=== PATIENT | female | born 1965 | race Caucasian/White ===

== ENCOUNTER → 2023-09-19 | Outpatient (CLI) | payer BC, SELFPAY | END | disposition home or self-care (01) | LOC: SL 19:39 | PROVIDERS: PCP Internal Medicine; Referring Provider Nurse Practitioner Acute Care; Visit Provider Nurse Practitioner Acute Care | DX: G47.10 Hypersomnia, unspecified (principal) | CPT/HCPCS: 95810 ==

== ENCOUNTER → 2023-09-22 | Outpatient (CLI) | payer BC, SELFPAY ==
[2023-09-22 11:15] VITALS: PULSE 104; PULSE 105; PULSE 106; PULSE 107; PULSE 72; PULSE 73; PULSE 90; O2SAT 91; O2SAT 92; O2SAT 93; O2SAT 94; O2SAT 96
--- NOTE | 2023-09-23 10:02 | PCM.PSN.6M ---
PSN 6 Minute Walk Test 6 Minute Walk Test 6 Minute Walk Test: 6 Minute Walk Test PSN:6-Minute Walk Test Start: 09/22/23 11:17 Freq: Status: Active Protocol: [id number] Document 09/22/23 11:15 EW (Rec: 09/22/23 11:19 EW Desktop) 6 Minute Walk Test Date Performed 09/22/23 Time Performed 11:15 Height 4 ft 11 in Weight: 190 lb Weight in Pounds 190.0 lbs Assistive device used: None Pre-test Oxygen Delivery Method Room Air Pulse Ox 92 Pulse Rate (60-100) 90 Dyspnea Sunny Scale (0-10) 2 Exertion Sunny Scale (6-20) 8 1st minute Oxygen Delivery Method Room Air Pulse Ox 92 Pulse Rate (60-100) 73 2nd minute Oxygen Delivery Method Room Air Pulse Ox 91 Pulse Rate (60-100) 72 3rd minute Oxygen Delivery Method Room Air Pulse Ox 93 Pulse Rate (60-100) 104 H 4th minute Oxygen Delivery Method Room Air Pulse Ox 91 Pulse Rate (60-100) 105 H 5th minute Oxygen Delivery Method Room Air Pulse Ox 91 Pulse Rate (60-100) 107 H 6th minute Oxygen Delivery Method Room Air Pulse Ox 94 Pulse Rate (60-100) 106 H Post-test Oxygen Delivery Method Room Air Pulse Ox 96 Pulse Rate (60-100) 105 H Dyspnea Sunny Scale (0-10) 3 Exertion Sunny Scale (6-20) 13 Full Laps Walked 16 Partial Lap, Number of Tiles Walked 0 Total Distance Walked (ft) 944 Interpretation Interpretation: The patient ambulated 944 feet over the course of 6 minutes beginning on room air without assistive devices. Pretesting oxygen saturation was noted to be 92% on room air. With ambulation, the molina oxygen saturation was 91%. There was no significant exertional oxygen desaturation. Recommendations Recommendations: There is no indication for the use of supplemental oxygen at this time.
== END | disposition home or self-care (01) ==
LOC: PSN 10:56
PROVIDERS: PCP Internal Medicine; Referring Provider Nurse Practitioner Acute Care; Visit Provider Nurse Practitioner Acute Care
DX: R06.02 Shortness of breath (principal)
CPT/HCPCS: 94618

== ENCOUNTER 2023-09-29 09:12 | Outpatient (CLI) | payer BC, SELFPAY ==
--- NOTE | 2023-09-29 09:16 | CT_ITS ---
STUDY: LOW DOSE CT LUNG CANCER SCREENING REASON FOR EXAM: Female, 58 years old. smoker RADIATION DOSAGE (If Supplied By Facility): CTDIvol = ( 3.02 ) mGy, DLP = ( 90.63 ) mGycm TECHNIQUE: No contrast was administered. Low dose technique was utilized (average mAS-38 and kVp 120). 1.25 mm axial source images with a slice interval of 1.25-mm were reconstructed in lung windows. 2.5 mm axial source images with a slice interval of 2.5-mm were reconstructed in lung windows. 5.0 mm axial source images with a slice interval of 5.0-mm were reconstructed in soft tissue windows. COMPARISON: None. Emphysema: Mild emphysema. No noncalcified nodule or mass. Endobronchial lesion: None Aorta: Some calcified plaque in the aortic arch but no thoracic aortic aneurysm. CORONARY ARTERIES: Coronary artery calcification is seen. Heart: No cardiomegaly. Pulmonary artery: Normal Mediastinal nodes: Normal Other chest and abdominal findings: None CT/Low Dose CT Lung Screening IMPRESSION: Lung-RADS category 1 - Continue annual screening with LDCT in 12 months. IMPORTANT NOTES FOR USE: ACR Lung-RADS Version 1.1 Assessment Categories Release Date: 2018 Category: Coded 0-4 bases on nodule(s) with highest degree of suspicion. Negative screen is defined as categories 1 and 2; a positive screen is defined as categories 3 and 4. Category 3 and 4A nodules that are unchanged on interval CT should be coded as category 2, and individuals returned to screening in 12 months. Category 4X: Category 3 or 4 nodules with additional imaging findings that increase the suspicion of lung cancer, such as spiculation, GGN that doubles in size in 1 year, enlarged lymph notes, etc. Category Modifiers: S (significant finding unrelated to lung cancer) Electronically Signed: Brian Cline MD at 23:43 EDT ,
== END 2023-09-29 23:59 | disposition home or self-care (01) ==
LOC: CT 09:13
PROVIDERS: PCP Internal Medicine; Referring Provider Nurse Practitioner Acute Care; Visit Provider Nurse Practitioner Acute Care
DX: R06.02 Shortness of breath (principal); J43.9 Emphysema, unspecified; I25.10 Atherosclerotic heart disease of native coronary artery without angina pectoris; F17.210 Nicotine dependence, cigarettes, uncomplicated
CPT/HCPCS: 71271; 94060; 94726; 94729

== ENCOUNTER → 2024-10-01 | Outpatient (CLI) | payer BC, SELFPAY ==
--- NOTE | 2024-10-01 07:41 | CT_ITS ---
PROCEDURE: LOW DOSE CT LUNG SCREENING 10/01/2024 REASON FOR EXAM: SMOKER TECHNIQUE: Low Dose CT Lung screening without contrast. Coronal and Sagittal reconstruction series were provided. One or more dose reduction techniques were used (e.g., Automated exposure control, adjustment of the mA and/or kV according to patient size, use of iterative reconstruction technique). REFERENCE LINK: [employer] Lung-RADS RADIATION DOSE SUMMARY: CTDlvol: 3 mGy DLP: 89 mGycm COMPARISON: 09/29/2023. FINDINGS: PULMONARY NODULES: (Only nodules >3mm are reported) Nodules described below are on series 2 unless otherwise specified. Unchanged 6 mm calcified nodule in the right middle lobe. Unchanged 6.5 mm nodule in the right middle lobe. Unchanged emphysema. Unchanged mild bilateral peribronchial interstitial thickening, probably bronchitis. Unchanged moderate coronary artery calcifications. Unchanged atheromatous plaques of the aorta. Unchanged calcified mediastinal and hilar lymph nodes with the largest measuring 1.4 cm. Normal unenhanced main pulmonary artery and right and left pulmonary arteries. Normal bilateral peripheral pulmonary arteries. There is no demonstrated aortic aneurysm. Normal heart and pericardium. Normal visualized trachea and bronchi. Normal pleura. Unchanged hepatomegaly. CT/Low Dose CT Lung Screening IMPRESSION: 1. Unchanged 6 mm calcified nodule in the right middle lobe. 2. Unchanged 6.5 mm nodule in the right middle lobe. 3. Unchanged emphysema. 4. Unchanged mild bilateral peribronchial interstitial thickening, probably bro nchitis. 5. Unchanged moderate coronary artery calcifications. 6. Unchanged atheromatous plaques of the aorta. 7. Unchanged calcified mediastinal and hilar lymph nodes with the largest measu ring 1.4 cm. 8. Coronary artery calcification (CAC) is is present 9. 10. Lung-RADS Category: 2 BENIGN (BASED ON IMAGING FEATURES OR INDOLENT BEHAVIO R). RECOMMEND 12-MONTH SCREENING LDCT. Reading [facility] [address]
== END | disposition home or self-care (01) ==
LOC: CT 07:41
PROVIDERS: PCP Internal Medicine; Referring Provider Nurse Practitioner Acute Care; Visit Provider Nurse Practitioner Acute Care
DX: Z12.2 Encounter for screening for malignant neoplasm of respiratory organs (principal); F17.210 Nicotine dependence, cigarettes, uncomplicated
CPT/HCPCS: 71271

== ENCOUNTER 2025-04-19 05:51 | Day surgery (SDC) | payer MEDICAID, SELFPAY ==
--- NOTE | 2025-04-14 09:36 | HP.PCM_ITS ---
History and Physical
--- NOTE | 2025-04-14 09:36 | PCM.HP.BLA ---
History and Physical Referring Physician: Octavio Hamm MD History and Physical Procedure: Left ankle open reduction internal fixation displaced distal fibula fracture with possible syndesmosis repair Procedure date: April 19, 2025 Surgeon: Dr. Jr Velez Subjective? CC: Patient presents with a left ankle fracture. X-ray of? ?Date: 04/09/2025? ? Facility [facility] of? ?Date: ? ? ?Facility Other:? ? ? Date: ? ? Facility HPI: Left ankle pain.? Dictating on a 59-year-old female who comes in today with her family due to a recent left ankle injury and fracture.? Patient states she was getting out of the bed when she rolled her ankle causing her to fall.? This injury occurred on April 09, 2025.? Patient was unable to ambulate and did go to the emergency room at [facility].? Patient states she is always had weak ankles.? She denies any pain at any other site other than the left ankle.? Denies hitting her head.? Her pain at worst is a 9/10, on average 7/10, at best 4/10.? Patient was given Percocet from the hospital.? She has also been using ibuprofen and Tylenol.? She has associated pain with any walking, stairs or driving.? She has been unable to put weight on her left lower extremity.? She attempted a knee scooter which caused more pain in the lower leg area.? She presents today in a wheelchair.? She has splint from the emergency room on the left lower extremity.? Patient denies any recent chest pain, fevers chills, recent infections.? Patient denies past history of DVT or pulmonary embolism.? Patient has been working on elevation and ice with the ankle. Current Meds: Furosemide 20 mg dose : 20 mg = 1 tab(s), oral, daily, 0 refill(s), Amlodipine Besylate 10 mg 1 po qd, Aspirin 81 81 mg 1 po qd, Omeprazole 40 mg 1 po qd, Benazepril HCL 40 mg 1 po qd, Lasix 20 mg 1 po qd, Tylenol Extra Strength 500 mg 2 by mouth every 8 hours, Potassium? 1 po qd, Albuterol Sulfate HFA 108 (90 Base) mcg/Act prn, Ltvvhqs-Eyjhtflzw-Crbc 500-250-12.5 mg 2 daily, Garlic 1000 mg once daily, Voltaren Arthritis Pain 1 % 3-4 times daily, Oxybutynin Chloride ER 10 mg 1 by mouth every day, Advair Diskus 500-50 mcg/Act inhale 1 puff by mouth twice daily, Oxycodone-Acetaminophen 5-325 mg take 1 tablet by mouth 4 times daily, Atorvastatin Calcium 20 mg take 1 tablet by mouth every evening Allergies:? Vicodin - Itchy, surgical tapes - tears skin, Plastic Tape Advance Care Plan: No Advance Directives Effective Date: 04/29/2020 Past Medical History: Medical Problems: Arthritis, Asthma, High Blood Pressure, Acid Reflux, Hypercholesterolemia, pain management, Chronic Obstructive Pulmonary Disease (COPD), Sleep Apnea Accidents: RT Shoulder Injury - (10/21/2013) FALL Other - (04/2022) Fall, landed on left more than right hand/wrist? Fracture - (04/09/2025) left ankle - [facility]? Surgical Hx: Back Surgery - (2007) RT Shoulder Surgery - (2005) Tubal Ligation - (1994) Hysterectomy - (05/04/2019) [facility] [place] Anterior Cervical Fusion - (05/25/2023) Dr Nannette Chong @ [facility] Anesthesia Complications: None Assistive Devices: Dentures, Oxygen - 2L , Cpap - mixed with Oxygen? Reviewed and updated. Family History: High Blood Pressure - mother? . Children:3 Reviewed, no changes. 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 Personal Habits:? Cigarette Use: Heavy tobacco smoker (more than 10 cigarettes/day).Smokeless Tobacco: Never Used Smokeless Tobacco.E-Cigarette Use: Never used.Alcohol: Occasionally.Drug Use: Denies Use.Enjoy Exercising: Never Exercises. Reviewed and updated - 04/12/2025 at 10:50 am by Clover Dupont BMI outside normal limits? YES?NO Patient was counseled and given education for nutritional guidance today or during this calendar year YES?NO?N/A d/t pt unable to stand due to current injury. Date: 04/12/2025 Was the patient queried about smoking behavior? Yes? No Does the patient currently smoke?Tobacco Use: Patient is a current smoker, smokes every day. Was the patient counseled about tobacco cessation?? ?Yes? No SDOH completed?? Yes? ? N/A Incomplete.? SDOH with positive findings?? ?Yes? ? No? ?Pt. education given Review Of Systems: Constitutional: Denies anorexia, anxiety, change in appetite, fever and weight change,hard of hearing, and vision problems. Cardiovasular: Denies chest pain, heart murmur, irregular heartbeat and peripheral vascular disease. Respiratory: Reports asthma, COPD, cough and shortness of breath, but denies pneumonia, tuberculosis and wheezing. Gastrointestinal: Denies constipation, diarrhea, heartburn, nausea, bloody stools and vomiting, and difficulty swallowing. Genitourinary: Denies incontinence. Musculoskeletal: Reports pain, but denies leg swelling, trouble walking and weakness and limp. Skin: Denies Raynaud's, history of shingles and tattoo. Neurological: Denies ambulatory dysfunction, dizziness, numbness/tingling and tremor. Psychiatric: Denies anxiety, depression, insomnia, mental illness and stress. Hematologic/Lymphatic: Reports bleeding/bruising tendency, but denies anemia and past transfusion. Reviewed and updated. Objective? Ht: Per patient she states she is unable to do so Wt: Per patient she states she is unable to do so Wt Prior: 188lb as of 12/27/23 Wt kg Prior: 85.277 as of 12/27/23 BMI: Per patient she states she is unable to do so BP: 132/82 Pulse: 81 Resp: 24 T: 97.5 T: 36.4C Pain Level: 7/10 O2SatR: 95 General appearance:NORMAL? ? ? Other: Eyes: Conjunctivae and lids: NORMAL? Pupils: ERR Ears, Nose, Mouth, and Throat: NORMAL? Other: Inspection of lips, teeth and gums: NORMAL? ?Other: Neck: Examination of neck: no masses noted. Respiratory: Assessment of respiratory effort: NORMAL? ?Other: ?Auscultation of lungs: clear to auscultation no wheezes, rhonchi or rales. Cardiovascular:? Auscultation of heart: regular rate and rhythm, no murmurs, gallops or rubs. Exam: Const: Alert and oriented x 3. Skin: Skin is warm, dry and intact. Neuro: Sensation grossly intact to light touch. Neurological and vascular function intact. On exam today patient presents in a wheelchair.? She has splints from the emergency room on the left ankle.? These were removed today.? Skin and ankle was assessed.? Patient has swelling but not severe.? There is ecchymosis.? No appreciable open wounds or abrasions.? She has tenderness to palpation over the lateral aspect of the ankle at the fracture site.? Tenderness along the medial ankle.? Nontender to palpation in the metatarsals and toes.? She has swelling into the foot. Range of motion: Patient was able to wiggle her toes.? Overall range of motion was deferred due to fracture.? She had full range of motion of the knee which was tested in the splint.? No pain in the knee. Special tests: Deferred due to fracture Strength: Deferred due to fracture Sensation intact to light touch to saphenous, sural, superficial/deep peroneal, and tibial distribution.? Negative Homans exam bilaterally. Dx Studies: ?X-rays from [facility] were reviewed from April 09, [address] Jr Velez.? Patient has a Qureshi B displaced distal fibula fracture.? Patient also has some chronic changes over the distal tip of the fibula most likely from remote ankle sprains.? There is significant medial clear space widening on the x-rays with lateral subluxation of the talus.? No appreciable fractures were seen other than the distal fibula.? No lytic or blastic lesions. ? ?? Assessment #1: Hx S82.62xA Displaced fracture of lateral malleolus of left fibula, initial encounter for closed fracture? Care Plan:? Med New? :? Oxycodone HCL?? Order? :? Ankle Foot Pneumatic Walker Ots Left (L4361) Med Current? ? :? Oxycodone HCL?? Assessment #2: Hx M25.472 Effusion, left ankle? Care Plan:? Order? :? Ankle Foot Pneumatic Walker Ots Left (L4361) Assessment #3: Hx M25.572 Pain in left ankle and joints of left foot? Care Plan:? Order? :? Ankle Foot Pneumatic Walker Ots Left (L4361) Assessment #4: Hx I10 Essential (primary) hypertension? Care Plan:? Recommendations:? Patient was explained that poorly controlled elevated blood pressure, hypertension, can lead to damage to the heart, brain, kidneys, and or eyes.? Hypertension can also damage arteries decreasing blood flow to the extremities, leading to delayed fracture healing and or recovery from tendon or ligament injuries.? Importance of proper blood pressure control and monitoring explained.? Recommended follow-up with their primary care physician as needed.? Blood pressure goal is less than 120/80. Blood pressure medication should be taken routinely including the morning of surgery unless otherwise instructed by their physician.? Patient's with hypertension are at increased risk of using anti-inflammatory medication such as Motrin or Aleve increasing the risk of heart attack or strokes.?? Assessment #5: Hx F17.210 Nicotine dependence, cigarettes, uncomplicated? Care Plan:? Recommendations:? As your physician, I believe in the immense health benefits of quitting the use of nicotine, tobacco, and/or marijuana.? Use of these products can increase risk of surgical complications and delay healing from injury, surgery, or fracture.? I have included smoking cessation programs and plans for your review and selection.? These programs will help with a tailored plan, potential medications and ongoing support to ensure your success with becoming tobacco, nicotine or marijuana free.? Please review and select a program that will meet your needs.?? Assessment #6: Hx Z99.3 Dependence on wheelchair? Care Plan:? Impression: 1.? Displaced left ankle Qureshi B distal fibula fracture 2.? Hypertension 3.? Gastroesophageal reflux disease 4.? Hypercholesterolemia 5.? Chronic obstructive pulmonary disease 6.? Obstructive sleep apnea? 7.? Asthma Plan: I did discuss x-rays and treatment plan with Dr. Jr Velez.? Due to patient's fracture and widening of the medial clear space we are recommending patient proceed forward with a open reduction internal fixation left ankle displaced distal fibula fracture with possible syndesmosis repair.? We discussed nonoperative care however due to the fracture pattern surgical intervention will be required.? Patient has had previous ankle injuries in which she always states she has had weak ankles.? With regards to surgery we discussed risks and benefits.? We were unable to take patient's weight and height due to the fracture.? Previous BMI one year ago was 38.0.? Patient is aware of her increased risk with her BMI as well as smoking status.? I did advise the patient risks of smoking with wound healing and fracture healing.? Recommend trying to decrease smoking or cessation and can talk with the primary care provider.? Patient is also aware of risk of arthritis after ankle fracture and surgery.?? Myself and Dr. Jr Velez did discuss and review with the patient all treatment options including surgical versus nonsurgical options.? I will continue plan established alongside with Dr. Jr Velez.? Patient does wish to proceed with the above-stated procedure.? Potential risks, benefits, and complications of the procedure were discussed in detail including but not limited to , infection, nerve and blood vessel damage, persistent pain, numbness, tingling, paresthesias, blood clot, pulmonary embolism, and requirement for possible further surgery.? The patient expressed full understanding and has no further questions for the doctor.? Patient does agree to proceed with the above-stated procedure and has signed the surgery consent form. Postoperative course of treatment was discussed in great detail with the patient.? Patient will be nonweightbearing for the first 2 weeks in the splint.? Depending upon fracture fixation weightbearing status will be determined by Dr. Brunilda Velez at the follow-up.? She will be placed in a pneumatic foam walking boot today which she will remain nonweightbearing.? She can only come out for showering in which she must do transfers in the boot.? She did voice understanding.? We continued to recommend elevation of the ankle above the heart for swelling control.? Patient has been using Percocet.? Patient was given a prescription for oxycodone 5 mg take 1-2 tablets every 6 hours as needed for pain.? She will use extra strength Tylenol 500 mg 2 tablets 3 times daily for primary pain and only use the oxycodone for breakthrough pain.? Patient can continue with the ibuprofen leading up to surgery but not to take it same day as surgery.? Patient currently takes a baby aspirin 81 mg daily however since she has nonweightbearing and the risk of DVT we are recommending she do the aspirin 81 mg twice daily leading up to surgery.? She will remain on that for 4 weeks postoperatively.? After 4 weeks of twice daily she will then go back to her normal once daily aspirin.? Patient will follow up per our postoperative instructions.? All questions were answered to the best of my ability.? Patient voiced understanding and agreement with the above treatment plan.? Patient will be given orders for CBC and BMP as well as EKG prior to surgery. I have reviewed the [place] Automated Rx Reporting System (OARRS) report for this patient for refill pattern and other prescriber involvement as part of the appropriate surveillance for the provision of acute and chronic controlled medications.? The report was requested and reviewed on the date of this entry, and was considered in the prescribing process.? . This dictation was created using voice recognition software. Phonetic and/or grammatical errors may exist. Seen by:??Vikas Fofana PA-C ?
--- NOTE | 2025-04-17 15:09 | PAT.ANESEVAL ---
Pre-Assessment Diagnosis/Proposed Procedure Planned Operative Procedure(s): ORIF LEFT ANKLE LATERAL MALLEOLUS FX Anesthesia History Anesthesia History - it risk advisor: Anesthesia History - it risk advisor Hx Hospitalization No 04/17/25 14:10 Any Problems With Anesthesia No 04/17/25 14:10 Cholinesterase deficiency No 04/17/25 14:10 You/Your Family Experience No 04/17/25 14:10 fever (hyperthermia) with Relationship Recent Exposure to Contagious Disease Does patient have nerve No 04/17/25 14:10 stimulator Patient instructed to have device shut off --Does patient have Pacemaker or ICD? When Was Last Pacemaker Check QUESTION #4 FULL TEXT: You/Your Family Experience fever (hyperthermia) with Anesthesia Last Oral Intake Last Oral intake: Last Oral Intake NPO since Meds taken in AM with sips of water? Meds patient instructed to take am of surgery PONV PONV - it risk advisor: PONV - it risk advisor Female Yes 04/17/25 14:10 HX of Motion Sickness No 04/17/25 14:10 HX of N/V After Surgery No 04/17/25 14:10 Non-Smoker No 04/17/25 14:10 Duration of Surgery greater Yes 04/17/25 14:10 than 60 minutes Number of Risk Factors 2 04/17/25 14:10 PONV Score Moderate Risk 04/17/25 14:10 Height & Weight Height & Weight: Anesthesia: Height & Weight Height 4 ft 11 in 01/22/25 08:56 Respiratory Assessment Respiratory Assessment - it risk advisor: Respiratory Tract Infection Hx - it risk advisor Hx Respiratory Tract Infection No 04/17/25 14:10 STOP Sleep Apnea STOP Sleep Apnea - it risk advisor: STOP Sleep Apnea - it risk advisor Hx Hypertension Yes: CONTROLLED WITH MED 04/17/25 14:10 Hx Sleep Apnea Yes 04/17/25 14:10 CPAP Yes: WITH 2L O2 04/17/25 14:10 BIPAP No 04/17/25 14:10 Do you snore loudly (louder than talking or can be heard Do you often feel tired/ fatigued/ sleepy during daytime? Has anyone observed you stop breathing during sleep? STOP Results Positive 04/17/25 14:10 QUESTION #5 FULL TEXT : Do you snore loudly (louder than talking or can be heard through closed doors)? 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 Specify any problems Hx of Preganancy in last 3 No 04/17/25 14:10 Months Nurse Filling Out Transfusion DSCHRIBER 04/17/25 14:10 & Questions: Date: 04/17/25 04/17/25 14:10 Time: 14:12 04/17/25 14:10 Patient unable to answer at this time (ie. confused, unrespo /Reproduction History /Reproductive History - it risk advisor: /Reproductive Hx- it risk advisor Hx Now No 04/17/25 14:10 Gestational Age (in weeks): EDC: Hx Hx Para Hx Section SAB No 04/17/25 14:10 Does the father of the baby or his family experience fever w Father of the baby Malignant Hypertension history comment [facility] Medical History (Updated 04/17/25 @ 14:20 by Negra Salvador) Wears glasses Wears partial dentures Alcohol use Uses wheelchair Bladder disease High cholesterol Migraine headache Back pain DDD (degenerative disc disease), cervical Gastric reflux Smoker On home oxygen therapy CPAP (continuous positive airway pressure) dependence Asthma COPD (chronic obstructive pulmonary disease) Shortness of breath on exertion Leg cramps History of pain when walking History of edema Hypertension Abnormal x-ray of lumbar spine Home Medications ?Medication ?Instructions ?Recorded ?Last Taken ?Type acetaminophen 500 mg tablet 500 mg PO Q4H PRN pain 08/25/23 Unknown History (Tylenol Extra Strength) albuterol sulfate 2.5 mg/3 mL 2.5 mg inhalation Q6H PRN 08/25/23 Unknown History (0.083 %) solution for nebulization shortness of breath or wheezing albuterol sulfate 90 mcg/actuation 2 puff inhalation Q4H PRN 08/25/23 Unknown History aerosol inhaler shortness of breath or wheezing amlodipine 10 mg tablet 10 mg PO DAILY 08/25/23 Unknown History aspirin 81 mg tablet,delayed 81 mg PO BID 08/25/23 Unknown History release ([place] Aspirin) benazepril 40 mg tablet 40 mg PO DAILY 08/25/23 Unknown History furosemide 20 mg tablet (Lasix) 20 mg PO DAILY 08/25/23 Unknown History garlic 1,000 mg capsule 1,000 mg PO DAILY 08/25/23 Unknown History omeprazole 40 mg capsule,delayed 40 mg PO DAILY 08/25/23 Unknown History release potassium chloride 10 mEq 10 meq PO DAILY 08/25/23 Unknown History capsule,extended release atorvastatin 20 mg tablet 20 mg PO QHS 09/06/23 Unknown History cholecalciferol (vitamin D3) 125 125 mcg PO DAILY 10/17/23 Unknown History mcg (5,000 unit) capsule fluticasone 500 mcg-salmeterol 50 1 inh inhalation BID #60 ea 01/14/25 Unknown Rx mcg/dose blistr powdr for inhalation (Wixela Inhub) calcium carbonate 500 mg PO DAILY 04/17/25 Unknown History ibuprofen 400 mg tablet (IBU) 400 mg PO Q6H PRN pain 04/17/25 Unknown History oxybutynin chloride 10 mg 10 mg PO QHS 04/17/25 Unknown History tablet,extended release 24 hr oxycodone 5 mg tablet 5 mg PO Q6H PRN pain 04/17/25 Unknown History Allergy/AdvReac Type Severity Reaction Status Date / Time acetaminophen (From Vicodin) Allergy Mild Itching Verified 04/17/25 14:04 adhesive tape Allergy Mild Other Verified 04/17/25 14:04 hydrocodone (From Vicodin) Allergy Mild Itching Verified 04/17/25 14:04 Dressing: Non-Medicated AdvReac Rash Verified 04/17/25 14:04 (bandaids) Surgical History (Updated 04/17/25 @ 14:20 by Negra Salvador) Hx of colonoscopy History of right oophorectomy History of hysterectomy H/O repair of rotator cuff History of removal of cyst Hx of partial cystectomy H/O cervical discectomy H/O tubal ligation Social History (Reviewed 01/22/25 @ 12:56 by Felisha Zavala BEVERAGE SALES CONSULTANT, BEVERAGE SALES CONSULTANT-C) Smoking Status: Current every day smoker tobacco type: cigarettes alcohol intake: current substance use type: does not use Audit: Pertinent Findings Pertinent Findings EKG Perinent findings: NSR, 04/16/2025 Recommendation Anesthesia Recommendation Anesthesia recommendation: OPTIMIZED for anesthesia
[2025-04-19] VITALS (10 sets, daily range): BP systolic 122–148; BP diastolic 65–81; PULSE 72–83; RESP 16–18; TEMP 36.4–36.9; O2SAT 92–100; BMI 40.6
[2025-04-19] MEDS: Lactated Ringers 1,000 ML 15 ML IV (06:58)
--- NOTE | 2025-04-19 07:08 | PCM.PRE.AN2 ---
ASA Classification* ASA Classification ASA Classification: 3 Assessment & Plan Anesthesia* Anesthesia Assessment Anesthesia Assessment: Discussed sedation and/or anesthesia options, risks, benefits, and alternatives with patient/parents/legal guardian/POA. Questions invited. The patient/parents/legal guardian/POA seems to understand and agrees to proceed with anesthesia plan. Reviewed the physical assessment, medical history, allergy history and patient home medications list prior to surgery/procedure/anesthetic and documented any changes. Performed airway and anesthesia risk assessments. Anesthesia Type Anesthesia Type: General and Block Anesthesia Focused Assessment* Temperature: 98.1 F Pulse Rate: 76 Blood Pressure: 146/76 Respiratory Rate: 18 Pulse Ox: 100 Airway Assessment Mouth opens: >3 cm Mallampati Score: II Labs Anesthesia Preop lab: CBC WBC, (4.4-11.0) 7.3 K/mm3 04/23/16, 10:17 RBC, (4.2-5.4) 4.80 M/mm3 04/23/16, 10:17 Hgb, (12.0-15.0) 15.8 g/dl H 04/23/16, 10:17 Hct, (37-47) 46.5 % 04/23/16, 10:17 Plt Count, (150-450) 321 K/mm3 04/23/16, 10:17 CHEMISTRY Potassium, (3.5-5.1) 3.9 mmol/L 04/23/16, 10:17 Sodium, (136-145) 139 mmol/L 04/23/16, 10:17 BUN, (7-18) 11 mg/dL 04/23/16, 10:17 Creatinine, (0.55-1.02) 0.61 mg/dL 04/23/16, 10:17 Glucose, (70-110) 97 mg/dL 04/23/16, 10:17 TSH, (0.358-3.74) 1.35 uIU/mL 12/16/14, 08:52 COAG PT Pending Today, 06:55 Pre-Assessment Diagnosis/Proposed Procedure Planned Operative Procedure(s): ORIF LEFT ANKLE LATERAL MALLEOLUS FX Anesthesia History 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 When Was Last Pacemaker Check QUESTION #4 FULL TEXT: You/Your Family Experience fever (hyperthermia) with Anesthesia Last Oral Intake Last Oral intake: Last Oral Intake NPO since 04:30 04/19/25 06:32 Meds taken in AM with sips of Yes 04/19/25 06:32 water? Meds patient instructed to amlodipine, oxycodone, 04/19/25 06:32 take am of surgery Advair PONV PONV - stunt woman: PONV - stunt woman Female Yes 04/17/25 14:10 HX of Motion Sickness No 04/17/25 14:10 HX of N/V After Surgery No 04/17/25 14:10 Non-Smoker No 04/17/25 14:10 Duration of Surgery greater Yes 04/17/25 14:10 than 60 minutes Number of Risk Factors 2 04/17/25 14:10 PONV Score Moderate Risk 04/17/25 14:10 Height & Weight Height & Weight: Anesthesia: Height & Weight Height 4 ft 10 in 04/19/25 06:32 Weight: 88.313 kg 04/19/25 06:32 Body Mass Index (BMI) 40.6 04/19/25 06:32 Respiratory Assessment Respiratory Assessment - stunt woman: Respiratory Tract Infection Hx - stunt woman Hx Respiratory Tract Infection No 04/17/25 14:10 STOP Sleep Apnea STOP Sleep Apnea - stunt woman: STOP Sleep Apnea - stunt woman Hx Hypertension Yes: CONTROLLED WITH MED 04/17/25 14:10 Hx Sleep Apnea Yes 04/17/25 14:10 CPAP Yes: WITH 2L O2 04/17/25 14:10 BIPAP No 04/17/25 14:10 Do you snore loudly (louder than talking or can be heard Do you often feel tired/ fatigued/ sleepy during daytime? Has anyone observed you stop breathing during sleep? STOP Results Positive 04/17/25 14:10 QUESTION #5 FULL TEXT : Do you snore loudly (louder than talking or can be heard through closed doors)? 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 Specify any problems Hx of Preganancy in last 3 No 04/17/25 14:10 Months Nurse Filling Out Transfusion DSCHRIBER 04/17/25 14:10 & Questions: Date: 04/17/25 04/17/25 14:10 Time: 14:12 04/17/25 14:10 Patient unable to answer at this time (ie. confused, unrespo /Reproduction History /Reproductive History - stunt woman: /Reproductive Hx- stunt woman Hx Now No 04/17/25 14:10 Gestational Age (in weeks): EDC: Hx Hx Para Hx Section SAB No 04/17/25 14:10 Does the father of the baby or his family experience fever w Father of the baby Malignant Hypertension history comment Active Medications Active Medications: Current Medications Generic Name Dose Route Start Last Admin Trade Name Sofia PRN Reason Stop Dose Admin Cefazolin Sodium 2 gm/ Sodium 110 mls @ 200 mls/hr 04/19/25 07:30 Chloride IV 04/19/25 08:02 INTRAOP ONE Lactated Ringer's 1,000 mls @ 15 mls/hr 04/19/25 06:15 04/19/25 06:58 IV 15 mls/hr .Q48H ALONA Administration PFSH Medical History (Updated 04/17/25 @ 14:20 by Negra Salvador) Wears glasses Wears partial dentures Alcohol use Uses wheelchair Bladder disease High cholesterol Migraine headache Back pain DDD (degenerative disc disease), cervical Gastric reflux Smoker On home oxygen therapy CPAP (continuous positive airway pressure) dependence Asthma COPD (chronic obstructive pulmonary disease) Shortness of breath on exertion Leg cramps History of pain when walking History of edema Hypertension Abnormal x-ray of lumbar spine Home Medications ?Medication ?Instructions ?Recorded ?Last Taken ?Type acetaminophen 500 mg tablet 500 mg PO Q4H PRN pain 08/25/23 04/18/25 History (Tylenol Extra Strength) albuterol sulfate 2.5 mg/3 mL 2.5 mg inhalation Q6H PRN 08/25/23 Unknown History (0.083 %) solution for nebulization shortness of breath or wheezing albuterol sulfate 90 mcg/actuation 2 puff inhalation Q4H PRN 08/25/23 04/19/25 History aerosol inhaler shortness of breath or wheezing amlodipine 10 mg tablet 10 mg PO DAILY 08/25/23 04/19/25 History aspirin 81 mg tablet,delayed 81 mg PO BID 08/25/23 04/18/25 History release ([place] Aspirin) benazepril 40 mg tablet 40 mg PO DAILY 08/25/23 04/18/25 History furosemide 20 mg tablet (Lasix) 20 mg PO DAILY 08/25/23 04/04/25 History garlic 1,000 mg capsule 1,000 mg PO DAILY 08/25/23 04/18/25 History omeprazole 40 mg capsule,delayed 40 mg PO DAILY 08/25/23 04/18/25 History release potassium chloride 10 mEq 10 meq PO DAILY 08/25/23 04/18/25 History capsule,extended release atorvastatin 20 mg tablet 20 mg PO QHS 09/06/23 04/18/25 History cholecalciferol (vitamin D3) 125 125 mcg PO DAILY 10/17/23 04/18/25 History mcg (5,000 unit) capsule fluticasone 500 mcg-salmeterol 50 1 inh inhalation BID #60 ea 01/14/25 04/19/25 Rx mcg/dose blistr powdr for inhalation ([place]ix[place] Inhub) calcium carbonate 500 mg PO DAILY 04/17/25 04/18/25 History ibuprofen 400 mg tablet (IBU) 400 mg PO Q6H PRN pain 04/17/25 04/18/25 History oxybutynin chloride 10 mg 10 mg PO QHS 04/17/25 04/18/25 History tablet,extended release 24 hr oxycodone 5 mg tablet 5 mg PO Q6H PRN pain 04/17/25 04/19/25 History Allergy/AdvReac Type Severity Reaction Status Date / Time acetaminophen (From Vicodin) Allergy Mild Itching Verified 04/19/25 06:26 adhesive tape Allergy Mild Other Verified 04/19/25 06:26 hydrocodone (From Vicodin) Allergy Mild Itching Verified 04/19/25 06:26 Dressing: Non-Medicated AdvReac Rash Verified 04/19/25 06:26 (bandaids) Surgical History (Updated 04/17/25 @ 14:20 by Negra Salvador) Hx of colonoscopy History of right oophorectomy History of hysterectomy H/O repair of rotator cuff History of removal of cyst Hx of partial cystectomy H/O cervical discectomy H/O tubal ligation Social History Smoking Status: Current every day smoker tobacco type: cigarettes alcohol intake: current substance use type: does not use Review of Systems (Anesthesia) ROS Narrative System reviewed and no additional complaints, except as documented.
--- NOTE | 2025-04-19 07:12 | RAD_ITS ---
PROCEDURE: RAD/O.R. Fluoro for C-Arm
--- NOTE | 2025-04-19 07:12 | RAD_ITS ---
PROCEDURE: RAD/Ankle min 3 Views
[2025-04-19] MEDS: Midazolam 2 MG/2 ML Syringe IV (07:21)
[2025-04-19 07:33] LABS: AST(SGOT) 21 U/L (<=31); Alanine Aminotransfer ALT/SGPT 21 U/L (<=34); Albumin, Serum 4.3 g/dL (3.4-4.8); Alkaline Phosphatase 58 U/L (35-104); Bilirubin, Direct 0.15 mg/dL (0.00-0.30); Globulin 2.5 g/dL (2.2-4.2)
[2025-04-19 07:35] LABS: Prothrombin Time (Protime)PT. 13.8 SECONDS (11.7-14.9)
[2025-04-19 07:36] LABS: Partial Thromboplast Time 27.3 Seconds (24.1-36.2)
[2025-04-19] MEDS: Cefazolin 1 GM/5 ML Vial 2 GM IV (07:37)
[2025-04-19] MEDS: Lidocaine 1% (5 ml sdv) 5 ML Vial 10 ML IV (07:42)
[2025-04-19] MEDS: fentaNYL 100 MCG/2 ML Ampul IV (08:39)
--- NOTE | 2025-04-19 09:02 | OP.PCM_ITS ---
Operative Report (Standard)
--- NOTE | 2025-04-19 09:02 | PCM.OPRPT ---
Operative Report (Standard) Operative Information Date of Procedure: 04/19/25 Pre-Operative Diagnosis: Left lateral malleolus fracture Post-Operative Diagnosis: Left lateral malleolus fracture Surgery/Procedure Performed: 1. Open reduction internal fixation left lateral malleolus. 2. Left ankle stress examination under anesthesia nurse transitional: Yes Abrasive Mixer Helper: Rachel Rdz Tasks completed by first grade teacher: Opening & closing, Implanting device and Retracting Type of Anesthesia: General/Regional RN Documented Start/Stop Times: Operation Date: 04/19/25 07:30 Case Time Into Pre-Op 04/19/25 06:00 Anesthesia Start 04/19/25 07:37 Into Room 04/19/25 07:37 Procedure Start 04/19/25 07:54 Procedure End 04/19/25 08:53 Anesthesia End 04/19/25 08:58 Out of Room 04/19/25 08:58 Procedure Start Time: 07:54 Procedure Stop Time: 08:53 Select all DRAINS/GRAFTS/IMPLANTS that apply: Implanted device Implanted device details: Arthrex 5 hole distal fibular locking plate titanium Estimated Blood Loss: 25 cc Specimen collected: No Description of surgery: Patient was seen in preoperative holding area. They were identified by name, medical record number, date of . The operative extremity was marked with a surgical marker. We confirmed informed consent with the patient and all questions were answered to her satisfaction. In the preoperative holding area, a popliteal block was administered by the anesthesia staff. At time of the procedure, patient was brought to the operative suite and positioned supine on a standard operating table. All bony prominences were well-padded. General anesthesia was administered. After adequate anesthesia, a well-padded pneumatic tourniquet was applied to the left upper thigh. A large bump was placed in the patient's left hip. The left lower extremity was elevated on bath blankets for fluoroscopic imaging and access to the limb during surgery. We secured this with tape as well as the nonoperative extremity. We then performed a timeout with all parties in attendance and agree with the side, site, operation to be performed. No concerns were voiced and elected to proceed. 2 g Ancef was administered prior to incision by the anesthesia staff. We then prepped and draped the operative extremity using a ChloraPrep. While stabilizing the ankle, the operative extremity was exsanguinated with an Esmarch bandage. Tourniquet was inflated to 250 mmHg for approximately 40 minutes. Incision was planned over the lateral malleolus and distal fibular shaft centered over the level of the fracture. Skin was sharply incised with a 15 blade scalpel. Superficial bleeders were cauterized with Bovie cautery. We then bluntly dissected to the level of the fascia. Fascia was opened with Bovie cautery. We examined closely for the superficial peroneal nerve which was not encountered throughout surgery. We bluntly dissected down to the level of the periosteum. Hohmann retractors were placed after fracture was encountered as well as the fibula. Periosteum was elevated at the level of the fracture approximately 2 to 3 mm. A [id number] reduction tenaculum was used to reapproximate the fracture site with excellent anatomic reduction. We then prepared for a lag screw for fixation. We first planned our lag screw perpendicular to the fracture site anterior superior to posterior inferior. We overdrilled the near cortex with a 3.0 mm drill bit. Significant splintering of the cortex was noted due to suspected osteoporosis. I elected to proceed with a locking plate fixation. Clamp was removed. Lateral distal locking plate was selected and provisionally pinned. Anatomic reduction was again achieved with lobster-claw clamp. Threaded BB tacks were used to compress the plate to bone. A cancellous screw was placed in the distal cluster unit cortically. The distal cluster was then filled with unicortical locking screws. A bicortical cortex 3 was then placed in the oblong hole of the shaft to compress the plate to the fibular shaft. 3 additional locking screws were placed due to the degree of osteoporosis. Fracture was unclamped and was stable. External rotation and cotton test were performed and visualized under fluoroscopy demonstrated stable syndesmosis. Wound was copiously irrigated with normal saline solution. Tourniquet deflated. Hemostasis achieved with Bovie cautery. Fascia layer was reapproximated over the plate with running, locking 2-0 Vicryl suture. Dermis was reapproximated buried 2-0 Vicryl suture. Skin was finally reapproximated with interrupted simple 3-0 nylon suture. Bulky sterile compression dressing was applied. Well-padded posterior splint was applied to maximal dorsiflexion. Patient was awakened from anesthesia and safely explained the operative suite. She was transferred to her gurney and subsequent to PACU in stable condition. Intraoperative medications: 2 g Ancef IV prior to tourniquet inflation Post Operative Plan: Weightbearing: Nonweightbearing operative extremity. Anticipate partial weightbearing in a boot at 2 weeks Antibiotics: 2 g Ancef x 1 dose preoperatively DVT Prophylaxis: 81 mg aspirin twice daily for DVT prophylaxis x 6 weeks postoperatively [place]: None Dressing: Maintain splint, keep it clean dry and intact until follow-up X-Rays: 2 weeks postop in the office Pain Medication: Oxycodone Rx upon discharge Follow-up: 2 weeks post-operatively with me in the office Surgical Findings: Poor bone quality concerning for osteoporosis. Stable construct. Stable syndesmosis. Complications Complications: No Admit VTE Documentation VTE Present on Admission: No VTE Mechan Device Prophylaxis: SCD's VTE Pharm Prophylaxis ordered?: Yes
--- NOTE | 2025-04-19 09:04 | POSTOP.ANE_ITS ---
Anesthesia: Postop Eval I
--- NOTE | 2025-04-19 09:04 | PCM.POST.ANE ---
Anesthesia: Postop Eval I Current Vital Signs Temperature: 97.6 F Pulse Rate: 83 Blood Pressure: 141/76 Respiratory Rate: 16 Pulse Ox: 92 Assessment Airway patent: Yes Spontaneous unlabored respirations: Yes nausea: No Vomiting: No Anesthesia Complication: No Fluid Hydration Crystalloid volume administer (ml): 800 Total IV fluid infused: 800 Progress Note Anesthesia document: Postop Eval 1 completed: Yes
[2025-04-19 09:17] LABS: INR Fingerstick 1.0
--- NOTE | 2025-04-20 11:55 | POSTOPAN2_ITS ---
Anesthesia Postop Eval I Sum
--- NOTE | 2025-04-20 11:55 | PCM.POSTANE2 ---
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 MACHINE [email or web address] Spontaneous unlabored Yes 04/19/25 09:04 OLIVING MACHINE OPERATOR.[email or web address] respirations Mental status nausea No 04/19/25 09:04 OLIVING MACHINE [email or web address].[email or web address] Vomiting No 04/19/25 09:04 OLIVING MACHINE [email or web address] Anesthesia Postop Eval I: Fluid Summary Crystalloid volume administer 800 04/19/25 09:04 OLIVING MACHINE [email or web address].TNES (ml) Colloids volume administered ( ml) Blood Product volume administered (ml) Total IV fluid infused 800 04/19/25 09:04 OLIVING MACHINE [email or web address] Anesthesia Postop Eval I: Summary Notes Anesthesia Complication No 04/19/25 09:04 OLIVING MACHINE [email or web address] Anesthesia Complication Comment: Post-operative progress note Anesthesia: Postop Eval II Evaluation Mental status: Awake and Calm Pain Level: 1 nausea: No Vomiting: No Complications Anesthesia Complication: No
== END 2025-04-19 11:02 | disposition home or self-care (01) ==
LOC: SDC 05:52 → AC 05:52
PROVIDERS: Student in an Organized Health Care Education/Training Program; PCP Student in an Organized Health Care Education/Training Program; Referring Provider Student in an Organized Health Care Education/Training Program; Visit Provider Student in an Organized Health Care Education/Training Program
PROC: (CPT 27792; principal; 2025-04-19 07:10)
DX: S82.62XA Displaced fracture of lateral malleolus of left fibula, initial encounter for closed fracture (principal); J44.9 Chronic obstructive pulmonary disease, unspecified; W06.XXXA Fall from bed, initial encounter; M81.0 Age-related osteoporosis without current pathological fracture; I10 Essential (primary) hypertension; E78.00 Pure hypercholesterolemia, unspecified; M19.90 Unspecified osteoarthritis, unspecified site; G47.30 Sleep apnea, unspecified; K21.9 Gastro-esophageal reflux disease without esophagitis; F17.210 Nicotine dependence, cigarettes, uncomplicated; Z79.82 Long term (current) use of aspirin; Z79.899 Other long term (current) drug therapy
CPT/HCPCS: 27792; 01480; 64450; 64447; 36416; 73610; 76000; 80076; 85610; 85730; C1713; J2405